=== PATIENT | female | born 1990 | race Caucasian/White ===

== ENCOUNTER 2016-12-15 17:20 | Emergency (ER) | payer OTHER ==
[2016-12-15 17:35] VITALS: BMI 21.8
[2016-12-15 17:37] VITALS: O2SAT 100
[2016-12-15] MEDS ORDERED: Sodium Chloride 0.9% 1,000 ML IV ONE (18:11)
--- NOTE | 2016-12-15 18:41 | C.PDOC ---
History Of Present Illness 26 y/o female, , 10 weeks , presents to ED with complaint of lower pelvic discomfort for 3 days. Patient was evaluated on 11/22/16 in this ER for similar complaints, discharged with diagnosis of UTI, and prescribed Keflex. Patient notes she took Keflex as directed. Denies any prior ultrasound during this . Patient otherwise denies fever, chills, nausea, vomiting, dysuria, vaginal bleeding, or other associated symptoms. Time Seen by Provider: 12/15/16 18:04 Chief Complaint (Nursing): Abdominal Pain History Per: Patient History/Exam Limitations: no limitations Onset/Duration Of Symptoms: Days Current Symptoms Are (Timing): Still Present Location Of Pain/Discomfort: Suprapubic Radiation Of Pain To:: None Quality Of Discomfort: "Pain" Associated Symptoms: denies: Fever, Chills, Nausea, Vomiting, Chest Pain, Urinary Symptoms Recent travel outside of the [place]: No Abnormal Vaginal Bleeding: No : 2 Para: 1 Miscarriage: 0 Past Medical History Reviewed: Historical Data, Nursing Documentation, Vital Signs Vital Signs: Last Vital Signs Temp 98.3 F 12/15/16 20:11 Pulse 78 12/15/16 20:11 Resp 18 12/15/16 20:11 BP 101/60 12/15/16 20:11 Pulse Ox 100 12/15/16 20:11 - Medical History PMH: No Chronic Diseases - [facility] Procedures LOCAL EXCIS BREAST LES (05/14/15) Family History: States: Unknown Family Hx - Social History Hx Tobacco Use: No Hx Alcohol Use: No Hx Substance Use: No - Immunization History Hx Tetanus Toxoid Vaccination: No Hx Influenza Vaccination: No Hx Pneumococcal Vaccination: No Review Of Systems Except As Marked, All Systems Reviewed And Found Negative. Constitutional: Negative for: Fever, Chills Cardiovascular: Negative for: Chest Pain Respiratory: Negative for: Cough Gastrointestinal: Positive for: Abdominal Pain. Negative for: Nausea, Vomiting Genitourinary: Negative for: Dysuria, Frequency, Vaginal Bleeding Skin: Negative for: Rash Physical Exam - Physical Exam Appears: Non-toxic, No Acute Distress Skin: Normal Color, Warm, Dry Head: Atraumatic, Normacephalic Oral Mucosa: Moist Chest: Symmetrical Cardiovascular: Rhythm Regular Respiratory: Normal Breath Sounds, No Rales, No Rhonchi, No Wheezing Gastrointestinal/Abdominal: Normal Exam, Soft, No Tenderness, No Distention, No Guarding, No Rebound Back: Normal Inspection, No CVA Tenderness Extremity: Normal ROM, Capillary Refill (< 2 sec. ) Neurological/Psych: Oriented x3, Normal Speech, Normal Cognition ED Course And Treatment - Laboratory Results Result Diagrams: 12/15/16 18:51 12/15/16 18:51 Lab Interpretation: Normal (quant HCG 97,399, O+) Urine POC: Positive O2 Sat by Pulse Oximetry: 100 (RA) Pulse Ox Interpretation: Normal - CT Scan/US US Other Rad Studies (CT/US): Read By Radiologist, Radiology Report Reviewed CT/US Interpretation: IMPRESSION: Odom viable is present, corresponding to 10 weeks 5 days gestation. Small left. ovarian cyst as described. Progress Note: Treated with Pepcid, Zofran, IVFs. Labs ordered and reviewed. On reassessment, patient is resting comfortably, and is in no acute distress. Patient instructed to follow up with clinic/PMD within 1-2 days. Reevaluation Time: 20:03 Reassessment Condition: Unchanged (remains asymptomatic) Medical Decision Making Medical Decision Making: normal IUP, no UTI Disposition Doctor Will See Patient In The: Office Counseled Patient/Family Regarding: Studies Performed, Diagnosis - Disposition Referrals: Jenny Marrero MD [Staff Provider] - Disposition: HOME/ ROUTINE Disposition Time: 20:03 Condition: GOOD Additional Instructions: Take pepcid 20 mg @ night to lower stomach acid and improve nausea symptoms. Take your vitamin at night as well- causes nausea Zofran ODT 4 mg (for nausea) dissolved on the mouth in Case of nausea/vomiting. Follow-up with your OBGYN as normal - Usually 12 weeks Ultrasound Prescriptions: Ondansetron ODT [Zofran ODT] 4 mg PO Q8H PRN #6 odt PRN Reason: Nausea/Vomiting Instructions: (ED), Hyperemesis Gravidarum (ED) - Clinical Impression Clinical Impression: , Hyperemesis gravidarum - Scribe Statement The provider has reviewed the documentation as recorded by the Pam Gupta Provider Attestation: Provider Scribe Attestation: All medical record entries made by the Scribe were at my direction and personally dictated by me. I have reviewed the chart and agree that the record accurately reflects my personal performance of the history, physical exam, medical decision making, and the department course for this patient. I have also personally directed, reviewed, and agree with the discharge instructions and disposition.
[2016-12-15] MEDS ORDERED: Sodium Chloride 0.9% 1,000 ML ONE (18:44)
[2016-12-15 18:55] LABS: BASO # 0.1 K/uL (0.0-0.2); BASO % 0.7 % (0.0-2.0); EOS # 0.1 K/uL (0.0-0.7); EOS % 1.3 % (0.0-4.0); HEMATOCRIT 34.1 % (34.0-47.0); LYMPH # 2.6 K/uL (1.0-4.3); LYMPH % 24.8 % (20.0-40.0); MEAN CELL VOLUME 91.1 fL (81.0-99.0); MEAN CORPUSCULAR HEMOGLOBIN 30.5 pg (27.0-31.0); MEAN CORPUSCULAR HGB CONC 33.5 g/dL (33.0-37.0); MEAN PLATELET VOLUME 8.7 fL (7.2-11.7); MONO # 0.7 K/uL (0.0-0.8); MONO % 6.6 % (0.0-10.0); RED CELL DISTRIBUTION WIDTH 13.6 % (11.5-14.5); WHITE BLOOD COUNT 10.4 K/uL (4.8-10.8)
[2016-12-15 19:04] LABS: CHLORIDE 98 mmol/L (98-107); POTASSIUM 3.9 mmol/L (3.6-5.2); SODIUM 136 mmol/L (132-148)
[2016-12-15 19:06] LABS: BILIRUBIN,TOTAL 0.5 mg/dL (0.2-1.3); GFR AFRICAN-AMERICAN > 60
[2016-12-15 19:07] LABS: ALB/GLOB RATIO 1.3 (1.0-2.1); ALKALINE PHOSPHATASE 43 U/L (38-126); ALT/SGPT 19 U/L (9-52); AST/SGOT 20 U/L (14-36); BLOOD UREA NITROGEN 10 mg/dL (7-17); CALCIUM 8.4 mg/dl (8.6-10.4); CARBON DIOXIDE 24 mmol/L (22-30); GLUCOSE,RANDOM 78 mg/dL (65-105); TOTAL PROTEIN 6.6 g/dL (6.3-8.3)
[2016-12-15 19:59] LABS: URINE BACTERIA RARE (<OCC); URINE BILIRUBIN NEGATIVE (NEGATIVE); URINE BLOOD NEGATIVE (NEGATIVE); URINE COLOR Yellow (YELLOW); URINE GLUCOSE (UA) NORMAL (Normal); URINE KETONE NEGATIVE (NEGATIVE); URINE LEUKOCYTE ESTERASE NEG Leu/uL (Negative); URINE PROTEIN NEGATIVE (NEGATIVE); URINE UROBILINOGEN NORMAL mg/dL (0.2-1.0)
[2016-12-15 20:12] VITALS: BP 101/60; PULSE 78; RESP 18; TEMP 98.3
--- NOTE | 2016-12-16 08:18 | US ---
Pelvic ultrasound History: . Pain. Comparison: None available. Technique: Real-time sonography was performed through the pelvis utilizing transabdominal technique. Findings: Uterus: 10.7 x 7.9 x 7.6 centimeters. Anteverted. Cervix measures 3.2 centimeters. Intrauterine gestational sac measuring 4.3 centimeters corresponding to a gestational age of 9 weeks and 5 days. Yolk sac measures 3.6 millimeters. [place]-rump length measures 4.7 centimeters corresponding to a gestational age of approximately 11 weeks and 4 days. heart rate of 146 beats per minute. No free fluid in the pelvic cul-de-sac. Right ovary: 2.9 x 1.8 x 2.1 centimeters. Normal flow. Left ovary: 3.9 x 2.2 x 3.5 centimeters. Normal flow. Hypoechoic cyst measuring 2.2 x 1.8 x 1.9 centimeters. Impression: Intrauterine corresponding to a gestational age of between 9 weeks and 5 days by gestational sac size and 11 weeks and 4 days by crown-rump length. heart rate of 146 beats per minute. Left ovarian cyst. Limited 1st trimester ultrasound for viability purposes only. Continued interval followup with serial ultrasound, serial HCG levels, and gynecological consultation would be helpful if clinically indicated. These findings were preliminarily reported at 7:56 p.m. on 12/15/[address] Bryan Harden from [employer].
== END 2016-12-15 20:13 | disposition home or self-care (01) ==
LOC: C.ER 17:20
DX: O21.0 Mild hyperemesis gravidarum (principal); Z3A.10 10 weeks gestation of pregnancy
CPT/HCPCS: 76801; 80053; 81001; 84702; 85025; 86850; 86900; 96361; 96374; 96375; 99285; J2405; J7040

== ENCOUNTER 2017-01-23 17:00 | Emergency (ER) | payer OTHER ==
[2017-01-23 17:42] VITALS: BMI 22.2
[2017-01-23] MEDS ORDERED: Sodium Chloride 0.9% 500 ML IV STA (19:36)
[2017-01-23 19:37] LABS: BASO % 0.4 % (0.0-2.0); EOS # 0.1 K/uL (0.0-0.7); EOS % 1.1 % (0.0-4.0); HEMATOCRIT 34.8 % (34.0-47.0); LYMPH # 2.7 K/uL (1.0-4.3); LYMPH % 23.7 % (20.0-40.0); MEAN CELL VOLUME 90.9 fL (81.0-99.0); MEAN CORPUSCULAR HEMOGLOBIN 29.8 pg (27.0-31.0); MEAN CORPUSCULAR HGB CONC 32.8 g/dL (33.0-37.0); MEAN PLATELET VOLUME 8.6 fL (7.2-11.7); MONO % 8.6 % (0.0-10.0); RED CELL DISTRIBUTION WIDTH 13.6 % (11.5-14.5); WHITE BLOOD COUNT 11.3 K/uL (4.8-10.8)
[2017-01-23 19:41] LABS: CHLORIDE 98 mmol/L (98-107)
[2017-01-23 19:42] LABS: POTASSIUM 3.8 mmol/L (3.6-5.2); SODIUM 131 mmol/L (132-148)
--- NOTE | 2017-01-23 19:42 | C.PDOC ---
History Of Present Illness A 26 year old female who is 16 weeks , presents to the ER vomiting and loose stool since yesterday. 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 Patient denies abdominal pain, fever, chills, cold, cough, vaginal discharge or bleeding, dysuria, hematuria, or any other complaints. Time Seen by Provider: 01/23/17 19:18 Chief Complaint (Nursing): GI Problem History Per: Patient History/Exam Limitations: no limitations Onset/Duration Of Symptoms: Days Current Symptoms Are (Timing): Still Present Severity: Mild Additional History Per: Patient Abnormal Vaginal Bleeding: No Past Medical History Reviewed: Historical Data, Nursing Documentation, Vital Signs Vital Signs: Last Vital Signs Temp 98.0 F 01/23/17 17:42 Pulse 84 01/23/17 17:42 Resp 20 01/23/17 17:42 BP 97/62 L 01/23/17 17:42 Pulse Ox 100 01/23/17 19:44 - Ready To Travel Procedures LOCAL EXCIS BREAST LES (05/14/15) Family History: States: Unknown Family Hx - Social History Hx Tobacco Use: No Hx Alcohol Use: No Hx Substance Use: No - Immunization History Hx Tetanus Toxoid Vaccination: No Hx Influenza Vaccination: No Hx Pneumococcal Vaccination: No Review Of Systems Except As Marked, All Systems Reviewed And Found Negative. Constitutional: Negative for: Fever, Chills Respiratory: Negative for: Cough Gastrointestinal: Positive for: Vomiting, Diarrhea. Negative for: Abdominal Pain Genitourinary: Negative for: Dysuria, Hematuria, Vaginal Discharge, Vaginal Bleeding Physical Exam - Physical Exam Appears: Non-toxic, No Acute Distress Skin: Warm, Dry Head: Atraumatic, Normacephalic Eye(s): bilateral: Normal Inspection, PERRL, EOMI Oral Mucosa: Moist Neck: Normal Cardiovascular: Rhythm Regular, No Murmur Respiratory: Normal Breath Sounds, No Rales, No Rhonchi, No Wheezing Gastrointestinal/Abdominal: Soft, No Tenderness, Other (gravid) Neurological/Psych: Oriented x3, Normal Speech, Normal Cognition ED Course And Treatment - Laboratory Results Result Diagrams: 01/23/17 19:30 01/23/17 19:30 O2 Sat by Pulse Oximetry: 100 (RA) Pulse Ox Interpretation: Normal Progress Note: FHR 174, pt is comfortable , tolerated PO fluids and advised clear fluids diet at home and may progress to BRAT diet if fluids are tolerated. Abdomen is nontender Reevaluation Time: 20:30 Reassessment Condition: Improved Medical Decision Making Medical Decision Making: Plans: -Blood labs -Zofran -IV fluids -UV -Reassess and disposition Patient is resting comfortably, abdomen remains soft, and patient is tolerating PO. ~Patient feels comfortable going home. Patient will be discharged home. Disposition Counseled Patient/Family Regarding: Diagnosis, Need For Followup, Rx Given - Disposition Referrals: Private OB, PMD [Other] Disposition: HOME/ ROUTINE Disposition Time: 20:31 Condition: STABLE Additional Instructions: Liquid diet if tolerated may do a BRAT diet ( bananas, rice, tea, apple, bread ) Follow up with your OB doctor Return to ER if worse Prescriptions: Ondansetron [Zofran Odt] 4 mg PO TID #10 odt - Clinical Impression Clinical Impression: Gastroenteritis, - Scribe Statement The provider has reviewed the documentation as recorded by the Danielibsal torrez All medical record entries made by the Danielibsal were at my direction and personally dictated by me. I have reviewed the chart and agree that the record accurately reflects my personal performance of the history, physical exam, medical decision making, and the department course for this patient. I have also personally directed, reviewed, and agree with the discharge instructions and disposition.
[2017-01-23 19:44] LABS: GFR AFRICAN-AMERICAN > 60
[2017-01-23 19:45] LABS: BLOOD UREA NITROGEN 14 mg/dL (7-17); CALCIUM 8.3 mg/dl (8.6-10.4); CARBON DIOXIDE 25 mmol/L (22-30); GLUCOSE,RANDOM 77 mg/dL (65-105)
[2017-01-23] MEDS ORDERED: Sodium Chloride 0.9% 500 ML IV ONE (19:58)
[2017-01-23 20:06] LABS: RBC URINE < 1 /hpf (0-3); URINE BACTERIA OCC (<OCC); URINE BILIRUBIN NEGATIVE (NEGATIVE); URINE BLOOD NEGATIVE (NEGATIVE); URINE COLOR Yellow (YELLOW); URINE GLUCOSE (UA) NORMAL (Normal); URINE KETONE NEGATIVE (NEGATIVE); URINE LEUKOCYTE ESTERASE TRACE Leu/uL (Negative); URINE PROTEIN NEGATIVE (NEGATIVE); URINE UROBILINOGEN NORMAL mg/dL (0.2-1.0); WBC URINE 3 /hpf (0-5)
[2017-01-23 20:56] VITALS: BP 94/62; PULSE 77; RESP 16; TEMP 98.1
[2017-01-24 03:08] VITALS: O2SAT 100
== END 2017-01-23 20:56 | disposition home or self-care (01) ==
LOC: C.ER 17:00
DX: O26.892 Other specified pregnancy related conditions, second trimester (principal); K52.9 Noninfective gastroenteritis and colitis, unspecified; Z3A.16 16 weeks gestation of pregnancy
CPT/HCPCS: 80048; 81001; 85025; 96361; 96374; 99284; J2405; J7040

== ENCOUNTER 2017-04-07 16:31 | Emergency (ER) | payer OTHER | END 2017-04-07 17:50 | disposition home or self-care (01) | LOC: C.EROB 16:31 | DX: O26.892 Other specified pregnancy related conditions, second trimester (principal); R10.30 Lower abdominal pain, unspecified; Z3A.27 27 weeks gestation of pregnancy ==

== ENCOUNTER 2017-04-24 12:24 | Emergency (ER) | payer OTHER ==
[2017-04-24 17:09] VITALS: BP 110/60; PULSE 77; RESP 18; TEMP 97; O2SAT 100
== END 2017-04-24 13:07 | disposition home or self-care (01) ==
LOC: C.EROB 12:24
DX: O26.893 Other specified pregnancy related conditions, third trimester (principal); R10.9 Unspecified abdominal pain; Z3A.29 29 weeks gestation of pregnancy

== ENCOUNTER 2017-05-14 23:03 | Emergency (ER) | payer OTHER ==
[2017-05-14 23:39] VITALS: BMI 29.0
--- NOTE | 2017-05-14 23:46 | OBHP ---
Datetime: 05/14/2017 23:40 IP Adm Impression: , intrauterine IP Admit Plan: Discharge home Admit Comment, IP Provider: chief complaint-lower abdominal pain HPI 26 y/o at 32 wga with c/o an episode of lower abodminal pain which started at 1pm, comes and goes, initially 6/10 now resolved. Pt denies any urinary frequency, urgency, dysuira. pt reports constipation. pt denies ctx, lof, vb, +MF. pt denies any inomplete emptying, last sexually active 2 m onths ago. pt denies any fevers, chills, nauase, vomiting, Cp, SOB. 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 Social hx denies tobacco,alcohol or illicit drug use Exam see exam section A/P 26 y/o at 32wga with c/o episode of abdominal pain now resolved no evidence of labor -s/p UA -patient discharged home -follow up with dr mcknight this week Discussed with dr mcknight Pelvic Type - PN: Adequate Extremities - PN: Normal Abdomen - PN: Normal Back - PN: Normal Breast - PN: Not Done Lungs - PN: Normal Heart - PN: Normal Thyroid - PN: Not Done Neurologic - PN: Normal HEENT - PN: Normal General - PN: Normal Presentation-Admit: Vertex FHR - Baseline A Provider: 130 Membranes, Provider: Intact Contraction Comments Provider: none Gestation - Est Wks by US: 32.0 EGA AdmitDate IP: 32.0 Vital Signs Provider: Reviewed; Within Normal Limits IP Chief Complaint: Other NICHD Variability Prov Fetus A: Moderate 6-25bpm NICHD Decel Fetus A IP Provider: None Dilatation, Provider: 0 Effacement, Provider: 0 Station, Provider: -3 Genitourinary Exam: Normal DTRs - PN: Normal
[2017-05-14 23:51] LABS: RBC URINE < 1 /hpf (0-3); URINE BACTERIA OCC (<OCC); URINE BILIRUBIN NEGATIVE (NEGATIVE); URINE BLOOD NEGATIVE (NEGATIVE); URINE COLOR Yellow (YELLOW); URINE GLUCOSE (UA) NORMAL (Normal); URINE KETONE NEGATIVE (NEGATIVE); URINE LEUKOCYTE ESTERASE TRACE Leu/uL (Negative); URINE PROTEIN NEGATIVE (NEGATIVE); WBC URINE 6 /hpf (0-5)
--- NOTE | 2017-05-14 23:53 | OBDCSUM ---
Datetime: 05/14/2017 23:50 Discharged to, Provider: Home Follow up at, Provider: Dr Guaman Disch Instr Activity: Normal activity Disch Instr Diet: Regular Discharge Instructions, Provider: Routine instructions given Discharge Time: 05/14/2017 23:50 Follow up in weeks, Provider: Disch Referrals: None Contraception discussed, Prov: No Discharge Comment, Provider: labor precautions given Discharge Diagnosis Prov Other: abdominal pain
[2017-05-15 04:30] VITALS: BP 109/57; PULSE 76; RESP 18
== END 2017-05-14 23:55 | disposition home or self-care (01) ==
LOC: C.EROB 23:03
DX: O26.893 Other specified pregnancy related conditions, third trimester (principal); R10.30 Lower abdominal pain, unspecified; Z3A.32 32 weeks gestation of pregnancy

== ENCOUNTER 2017-05-29 12:29 | Emergency (ER) | payer OTHER ==
[2017-05-29] MEDS ORDERED: Lactated Ringer's 1,000 ML IV SCH (13:30)
[2017-05-29 14:25] LABS: RBC URINE 2 /hpf (0-3); URINE BACTERIA RARE (<OCC); URINE BILIRUBIN NEGATIVE (NEGATIVE); URINE BLOOD NEGATIVE (NEGATIVE); URINE COLOR Yellow (YELLOW); URINE GLUCOSE (UA) NORMAL (Normal); URINE KETONE NEGATIVE (NEGATIVE); URINE LEUKOCYTE ESTERASE TRACE Leu/uL (Negative); URINE PROTEIN NEGATIVE (NEGATIVE); URINE UROBILINOGEN NORMAL mg/dL (0.2-1.0); WBC URINE 5 /hpf (0-5)
--- NOTE | 2017-05-29 16:29 | OBHP ---
Datetime: 05/29/2017 13:45 IP Adm Impression: , intrauterine ; No Active Labor; Intact Membranes IP Admit Plan: Discharge home Admit Comment, IP Provider: 27 y.o. P1001 LMP unsure, CANDACE 07/07/17, EGA 34w 3d, c/o clear fluid per vagina since 0800 hours, "whenever I sat on the toilet". Also, vaginal pressure "I can't breathe" si nce 1800 hours 05/28/17 - feels like cramps. Pain scale 6/10. issues: Dr Guaman. Severe anemia - on IV iron therapy - now 3 times a week @ [facility] [place]. No other issues. 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 Denies STIs or abnormal Pap. PMH: 2009, lyme disease; not on meds x 4 years. Has annual check with multiple providers. PSH: 2016, right breast cystectomy; benign. NKDA Meds: Not taking PNV - tried OTC Gummy MVI Soc Hx: denies tobacco, illicit drug or EtOH use. Lives with her son. Works for [employer]; on mate rnity leave 05/19/17. FOB not involved. Fam Hx: Mother alive 47 y.o. no med issue. Father alive 53 - sleep apnea. GreatGM - colon CA; A_W P.E.: as above. WD, in NAD; mildly anxious, crying. Awake, alert, oriented to time, person , and place. Pleasant and cooperative Assessment: 27 y.o. P1, 34w 3d, no rupture of membranes; presumptive BV. Uterine contracitns; no cervical dilatation. Category 1 tracing. clinically stable. Plan: 1) IVFs 2) U/A 3) Observe Addendum: 1410 hours - cervical exam repeated - no cervical change - U/A: trace leuk esterase; S.G. 1.014 Assessment: No cervical change; early UTI. BV. Category 1 tracing. Clincally stble. Plan: 1) Discharge home 2) Reviewed S/S PTL 3) Rx: MacroBID 100 mg p.o. BID x 7 days 4) Increase p.o. hydration 5) Keep next scheduled appointment - as per, and discussed with, Dr. Argueta Pelvic Type - PN: Adequate Extremities - PN: Normal Abdomen - PN: Normal Back - PN: Normal Breast - PN: Not Done Lungs - PN: Normal Heart - PN: Normal Thyroid - PN: Not Done Neurologic - PN: Normal HEENT - PN: Normal General - PN: Normal Presentation-Admit: Vertex FHR - Baseline A Provider: 140 Contraction Comments Provider: irregular Comments, ACOG Physical Exam: Abdomen: Gravid. Soft. Non tender in all quadrants Speculum: no pooling, nitrazine (-) , Moderate amount of yeloowinsh creamy discharge Bedside sono/BPP: cephalic, right fatemeh-lateral placenta; (+) FM; (+)FBM; (+) Tone; ELIAZAR 11.58cm All other systeme reviewed and are negative Gestation - Est Wks by US: 34w 1d EGA AdmitDate IP: 34.1 IP Chief Complaint: Uterine contractions; Suspected ruptured membranes NICHD Variability Prov Fetus A: Moderate 6-25bpm NICHD Accel Fetus A IP Provider: 15X15 FHR Category Provider Fetus A: Category I NICHD Decel Fetus A IP Provider: None Dilatation, Provider: 0 Effacement, Provider: 30 Station, Provider: -3 Genitourinary Exam: Normal DTRs - PN: Not Done
[2017-05-29 19:17] VITALS: BP 110/58; PULSE 89; RESP 18; TEMP 97.7
== END 2017-05-29 15:05 | disposition home or self-care (01) ==
LOC: C.EROB 12:29
DX: O47.03 False labor before 37 completed weeks of gestation, third trimester (principal); Z3A.34 34 weeks gestation of pregnancy
CPT/HCPCS: 81001; 99283; J7120

== ENCOUNTER 2017-05-31 16:04 | Emergency (ER) | payer OTHER ==
[2017-05-31] MEDS ORDERED: Lactated Ringer's 1,000 ML IV ONE (16:32)
[2017-05-31 17:32] LABS: RBC URINE 2 /hpf (0-3); URINE BILIRUBIN NEGATIVE (NEGATIVE); URINE BLOOD NEGATIVE (NEGATIVE); URINE COLOR Yellow (YELLOW); URINE GLUCOSE (UA) NORMAL (Normal); URINE KETONE NEGATIVE (NEGATIVE); URINE LEUKOCYTE ESTERASE 1+ Leu/uL (Negative); URINE PROTEIN NEGATIVE (NEGATIVE); URINE UROBILINOGEN NORMAL mg/dL (0.2-1.0); WBC URINE 18 /hpf (0-5)
--- NOTE | 2017-05-31 18:28 | OBDCSUM ---
Datetime: 05/29/2017 15:01 Discharge Comment, Provider: cont macrobid ptl givern po hyration f/u dr snow on sep 18 Discharge Diagnosis Prov Other: 34wee ctxs nst
--- NOTE | 2017-05-31 18:29 | OBHP ---
Datetime: 05/31/2017 18:24 Admit Comment, IP Provider: pt was seen at bed side. feels good, no ctxs, vb, lof,+fm s/p ivf and terv ve closed x 2 ua neg plan cont macrobid ptl givern po hyration f/u dr snow on jun 05 FHR - Baseline A Provider: 140 Contraction Comments Provider: none NICHD Variability Prov Fetus A: Moderate 6-25bpm NICHD Accel Fetus A IP Provider: 15X15 FHR Category Provider Fetus A: Category I Datetime: 05/31/2017 16:40 IP Adm Impression: , intrauterine Comments, ACOG Physical Exam: VS: BP 98/55 HR 85 Gen: AAOx3, NAD Abd: soft, gravid, no fundal tenderness Ext: no clubbing, cyanosis, edema SVE: closed EFM: 135, mod variability, accels, no decels TOCO: CTX q4-10min EGA AdmitDate IP: 34.3 IP Chief Complaint: Uterine contractions NICHD Decel Fetus A IP Provider: None
[2017-05-31 23:04] VITALS: BP 110/59; PULSE 102; RESP 20; TEMP 97.5; O2SAT 99
== END 2017-05-31 18:48 | disposition home or self-care (01) ==
LOC: C.EROB 16:04
DX: O26.893 Other specified pregnancy related conditions, third trimester (principal); R10.9 Unspecified abdominal pain; Z3A.34 34 weeks gestation of pregnancy
CPT/HCPCS: 81001; 96372; 99283; J7120

== ENCOUNTER 2017-06-19 22:42 | Emergency (ER) | payer OTHER ==
--- NOTE | 2017-06-19 23:07 | OBHP ---
Datetime: 06/19/2017 22:59 IP Adm Impression: Term, intrauterine IP Admit Plan: Discharge home Admit Comment, IP Provider: chief complaint-lower abdominal pain, cramping HPI 26 y/o at 37.1 wga with c/o an episode of lower abodminal pain and cramping since 5pm th at comes and goes every 30 mintues, 11/25, denies lof, vb, +FM. pt reports she has been having trouble sleepign at night and is ready to have the baby. 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 Social hx denies tobacco,alcohol or illicit drug use Exam see exam section A/P 26 y/o at 37.1 wks GA not in labor -d/c ella e -labor purecaitons -f/u Dr Guaman 06/21/[address] guaman Pelvic Type - PN: Adequate Extremities - PN: Normal Abdomen - PN: Normal Back - PN: Normal Breast - PN: Not Done Lungs - PN: Normal Heart - PN: Normal Thyroid - PN: Not Done Neurologic - PN: Normal HEENT - PN: Normal General - PN: Normal Presentation-Admit: Vertex FHR - Baseline A Provider: 145 Membranes, Provider: Intact Gestation - Est Wks by US: 37.1 EGA AdmitDate IP: 37.1 Vital Signs Provider: Reviewed; Within Normal Limits IP Chief Complaint: Uterine contractions NICHD Variability Prov Fetus A: Moderate 6-25bpm FHR Category Provider Fetus A: Category I Dilatation, Provider: 0 Effacement, Provider: 0 Station, Provider: -3 Genitourinary Exam: Normal DTRs - PN: Normal
[2017-06-20 06:32] VITALS: BP 94/51; PULSE 81
== END 2017-06-19 23:47 | disposition home or self-care (01) ==
LOC: C.EROB 22:42
DX: O26.893 Other specified pregnancy related conditions, third trimester (principal); Z3A.37 37 weeks gestation of pregnancy

== ENCOUNTER 2017-06-26 12:58 | Inpatient (IN) | payer OTHER ==
[2017-06-26 14:00] VITALS: BMI 30.4
[2017-06-26] MEDS ORDERED: Lactated Ringer's 1,000 ML IV SCH ×2 (14:00)
[2017-06-26 14:38] LABS: BASO % 0.4 % (0.0-2.0); EOS # 0.1 K/uL (0.0-0.7); EOS % 0.7 % (0.0-4.0); HEMATOCRIT 34.1 % (34.0-47.0); LYMPH # 1.3 K/uL (1.0-4.3); LYMPH % 17.1 % (20.0-40.0); MEAN CORPUSCULAR HEMOGLOBIN 29.1 pg (27.0-31.0); MEAN CORPUSCULAR HGB CONC 32.7 g/dL (33.0-37.0); MONO # 0.6 K/uL (0.0-0.8); MONO % 7.5 % (0.0-10.0); NRBC % 0.1 % (0.0-2.0); RED CELL DISTRIBUTION WIDTH 26.1 % (11.5-14.5); WHITE BLOOD COUNT 7.7 K/uL (4.8-10.8)
[2017-06-26 14:47] LABS: CHLORIDE 102 mmol/L (98-107); POTASSIUM 3.6 mmol/L (3.6-5.2); SODIUM 130 mmol/L (132-148)
[2017-06-26 14:49] LABS: BILIRUBIN,TOTAL 0.6 mg/dL (0.2-1.3); GFR AFRICAN-AMERICAN > 60
[2017-06-26 14:50] LABS: ALB/GLOB RATIO 1.1 (1.0-2.1); ALKALINE PHOSPHATASE 206 U/L (38-126); ALT/SGPT 29 U/L (9-52); AST/SGOT 20 U/L (14-36); BLOOD UREA NITROGEN 7 mg/dL (7-17); CARBON DIOXIDE 19 mmol/L (22-30); GLUCOSE,RANDOM 69 mg/dL (65-105); TOTAL PROTEIN 6.3 g/dL (6.3-8.3)
[2017-06-26 14:51] LABS: CALCIUM 8.5 mg/dl (8.6-10.4)
--- NOTE | 2017-06-26 14:51 | OBADHP ---
Datetime: 06/26/2017 13:22 Admit Comment, IP Provider: 27 yo , LMP unsure, CANDACE 07/07/17, EGA 38w 1d c/o SROM at 1000 hours , clear. Also c/o Ctx x "months"; slightly stronger after ROM; crampy; pain scale now 4/10. (+) AFM; denies LOF. Not sexuallyactive in (FOB not involved). care: Dr. AGATA White noted for severe anemia. S/P IV iron infusion therapy 3 times/week x 3-4 weeks; last treatment 4 weeks ago. 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 Denies STIs or abnormal Pap. PMH: 2008, lyme disease; not on meds x 4 years. Has annual check with multiple providers. PSH: 2016, right breast cystectomy; benign. NKDA Meds: Not taking PNV - tried OTC Gummy MVI Soc Hx: denies tobacco, illicit drug or EtOH use. Lives with her son. Works for [employer]; on [employer] leave 05/19/17. FOB not involved. Fam Hx: Mother alive 47 y.o. no med issue. Father alive 53 - sleep apnea. Mat GreatGM - colon CA; A_W at age 98 P.E.: as above. WD in NAD. Awake, alert, oriented to time, person and place. Accompanied by older sister Assessment: 27 y.o. P1001, 38w 1d, SROM. GBS (-). Severe anemia - S/P IV iron infusion therapy.Ca tegory 1 tracing. Clinically stable. Plan: 1) Admt 2) NPO 3) Admission labs 4) Continuous EFM 5) Conservative managment 6) Anticipate vaginal delivery Pelvic Type - PN: Adequate Extremities - PN: Normal Abdomen - PN: Normal Back - PN: Normal Breast - PN: Not Done Lungs - PN: Normal Heart - PN: Normal Thyroid - PN: Not Done Neurologic - PN: Normal HEENT - PN: Normal General - PN: Normal Presentation-Admit: Vertex FHR - Baseline A Provider: 140 Membranes, Provider: Ruptured Contraction Comments Provider: irregular Comments, ACOG Physical Exam: Abdomen: Gravid. Soft. non tender in all quadrants. fundal height 38 c m Speculum: (+) pooling; (+) nitrazine All other systems reviewed and are negative Gestation - Est Wks by US: 38w 1d Pool Provider: Positive Nitrazine Provider: Positive IP Hx Assessment: The History has been Reviewed and is Current Vital Signs Provider: Reviewed IP Chief Complaint: Suspected ruptured membranes NICHD Variability Prov Fetus A: Moderate 6-25bpm NICHD Accel Fetus A IP Provider: 15X15 FHR Category Provider Fetus A: Category I NICHD Decel Fetus A IP Provider: None Dilatation, Provider: 4 Effacement, Provider: 40 Station, Provider: -3 Genitourinary Exam: Normal DTRs - PN: Not Done EGA AdmitDate IP: 38.1 IP Adm Impression: Term, intrauterine ; No Active Labor; Ruptured Membranes IP Admit Plan: Admit to unit; Initiate labor protocol Datetime: 04/24/2017 12:55 IP Chief Complaint Other: abdominal pain
[2017-06-26 14:57] LABS: RBC URINE < 1 /hpf (0-3); URINE BILIRUBIN NEGATIVE (NEGATIVE); URINE BLOOD NEGATIVE (NEGATIVE); URINE COLOR Yellow (YELLOW); URINE GLUCOSE (UA) NORMAL (Normal); URINE KETONE NEGATIVE (NEGATIVE); URINE LEUKOCYTE ESTERASE NEG Leu/uL (Negative); URINE PROTEIN NEGATIVE (NEGATIVE); URINE UROBILINOGEN NORMAL mg/dL (0.2-1.0); WBC URINE 1 /hpf (0-5)
[2017-06-26] MEDS ORDERED: Dextrose 5%/Lactated Ringer's 1,000 ML IV SCH ×3 (16:15→17:45)
[2017-06-26] MEDS ORDERED: Bupivacaine 0.125%/FentaNYL 200 ML EPI ONE (16:56)
--- NOTE | 2017-06-26 16:57 | OBPN ---
Datetime: 06/26/2017 16:51 IP Progress Impression: Normal progression of labor IP Procedures: Sterile Vag Exam IP Progress Plan: Continue present management; Anticipate Vaginal Delivery Membranes, Provider: Ruptured Contraction Comments Provider: 2-5 FHR - Baseline A Provider: 150 IP Progress Note Comment: At approximately 1505 hours, notified by R.N. - patient c/o urge to have b owel movement Cervical exam as above - posterior, medium consistency. Assessment: 27 y.o. P1, 38w 2d, PROM, GBS (-), entering active phase of labor. Category 1 tracing . Clinically stable. Plan: 1) Continue present management 2) Epidural, upon request 3) Anticipate vaginal delivery Vital Signs Provider: Reviewed; Within Normal Limits NICHD Accel Fetus A IP Provider: 15X15 FHR Category Provider Fetus A: Category I NICHD Variability Prov Fetus A: Moderate 6-25bpm Dilatation, Provider: 5 Effacement, Provider: 50 Station, Provider: -3 NICHD Decel Fetus A IP Provider: None Datetime: 06/26/2017 13:22 Pool Provider: Positive Nitrazine Provider: Positive Gestation - Est Wks by US: 38w 1d Presentation-Admit: Vertex
[2017-06-26] MEDS ORDERED: Bupivacaine HCl 0.25% PF (10 ml) Inj ONE (16:59)
[2017-06-26] MEDS ORDERED: Oxytocin 30 UNIT 30 UNITS/500 ML BAG IV ONE (20:06)
[2017-06-26] MEDS ORDERED: Oxytocin 30 UNIT 30 UNITS/500 ML BAG IV SCH (20:15)
[2017-06-26] MEDS ORDERED: Lidocaine 2% MPF (5 ml) Inj ONE (21:00)
[2017-06-26] MEDS ORDERED: Bupivacaine HCl 0.5% PF (10 ml) Inj ONE (21:01)
[2017-06-26] MEDS ORDERED: Bupivacaine 0.25% Inj(30mL) ONE (21:03)
[2017-06-26] MEDS ORDERED: Benzocaine/Menthol 20%-0.5% Topical Spray (60 ml) TOP PRN (23:44)
[2017-06-26] MEDS ORDERED: Measles, Mumps, and Rubella 0.5 ML VIAL SC ONE (23:44)
--- NOTE | 2017-06-26 23:53 | OBADHP ---
Datetime: 06/26/2017 16:51 FHR - Baseline A Provider: 150 Membranes, Provider: Ruptured Contraction Comments Provider: 2-5 Vital Signs Provider: Reviewed; Within Normal Limits NICHD Variability Prov Fetus A: Moderate 6-25bpm NICHD Accel Fetus A IP Provider: 15X15 FHR Category Provider Fetus A: Category I NICHD Decel Fetus A IP Provider: None Dilatation, Provider: 5 Effacement, Provider: 50 Station, Provider: -3 Datetime: 06/26/2017 13:22 EGA AdmitDate IP: 38.1
--- NOTE | 2017-06-26 23:55 | OBDS ---
DELIVERY PERSONNEL Delivery Doctor: DR PARMAR Green Pipefitter: Dianne Leigh RN Anesthesiologist: DR PAGE MATERNAL INFORMATION Delivery Anesthesia: Epidural Medications in Delivery: Pitocin Estimated Blood Loss (ml): 300 Placenta Cultured: No Maternal Complications: None Provider Comments: VILMA, right shoulder anterior no dystocia reduced with maternal pushing, intact pe rineum, spontaneous placenta delivery intact LABOR SUMMARY EDC: 07/09/2017 00:00 No. Babies in Womb: 1 Attempted: No Labor Anesthesia: Epidural LABOR INFORMATION Onset of Labor: 06/26/2017 13:00 Complete Dilatation: 06/26/2017 22:13 Oxytocin: Augmentation Group B Beta Strep: Negative Steroids Given: None Reason Steroids Not Administered: Not Applicable MEMBRANES Membranes Rupture Method: Spontaneous Rupture of Membranes: 06/26/2017 10:30 Length of Rupture (hrs): 12.92 Amniotic Fluid Color: Clear Amniotic Fluid Amount: Moderate Amniotic Fluid Odor: Normal STAGES OF LABOR Stage 1 hrs: 9 Stage 1 min: 13 Stage 2 hrs: 1 Stage 2 min: 12 Stage 3 hrs: 0 Stage 3 min: 4 Total Time in Labor hrs: 10 Total Time in Labor min: 29 VAGINAL DELIVERY Episiotomy: None Laceration Extension: N/A Laceration Type: Perineal Other Laceration: Superficial laceration Laceration Repair: Yes Laceration Repair Note: superficial bleeding 1 figure of eight with 2-0 chromic Initial Vag Sponge Count: 10+1 Lap Final Vag Sponge Count: 10+1Lap Initial Vag Sharps Count: 1 Final Vag Sharps Count: 1 Sponge Count Correct: Yes; Vaginal Sweep Performed Sharps Count Correct: Yes BABY A INFORMATION Infant Delivery Date/Time: 06/26/2017 23:25 Method of Delivery: Vaginal Born in Route : No : N/A Forceps: N/A Vacuum Extraction: N/A Shoulder Dystocia : No SHOULDER DYSTOCIA BABY A Infant Delivery Date/Time: 06/26/2017 23:25 PRESENTATION/POSITION BABY A Presentation: Cephalic Cephalic Presentation: Vertex Vertex Position: Left Occipital Anterior Breech Presentation: N/A PLACENTA INFORMATION BABY A Placenta Delivery Time : 06/26/2017 23:29 Placenta Method of Delivery: Spontaneous Placenta Status: Delivered SCORES BABY A Heart Rate 1 min: >100 bpm Resp Effort 1 min: Good Cry Reflex Irritability 1 min: Cough or Sneeze or Pulls Away Muscle Tone 1 min: Active Motion Color 1 min: Body [place], Extremities Blue SCORE 1 MIN: 9 Heart Rate 5 min: >100 bpm Resp Effort 5 min: Good Cry Reflex Irritability 5 min: Cough or Sneeze or Pulls Away Muscle Tone 5 min: Active Motion Color 5 min: Body [place], Extremities Blue SCORE 5 MIN: 9 INFORMATION BABY A Gestational Age at Delivery: 38.1 Gestational Status: Term Outcome : Liveborn Infant Condition : Stable Sex: Male IDENTIFICATION/MEDS BABY A ID Band Number: [id number] Sensor Number: [id number] WEIGHT/LENGTH BABY A Infant Birthweight (gms): 2950 Weight (lb): 6 Infant Weight (oz): 8 Infant Length Inches: 19.00 Length cms: 48.3 CORD INFORMATION BABY A No. Cord Vessels: 3 Nuchal Cord : N/A Cord Blood Taken: Yes Infant Suction: Mouth; Nose ASSESSMENT BABY A Infant Complications: None Physical Findings at Delivery: Within Normal Limits Respirations: Appears Normal Care By: DR MANCERA Transferred To: Remains with Mother
[2017-06-27 07:35] LABS: BASO % 0.1 % (0.0-2.0); EOS % 0.1 % (0.0-4.0); HEMATOCRIT 30.9 % (34.0-47.0); LYMPH # 1.3 K/uL (1.0-4.3); LYMPH % 8.5 % (20.0-40.0); MEAN CELL VOLUME 88.3 fL (81.0-99.0); MEAN CORPUSCULAR HEMOGLOBIN 29.2 pg (27.0-31.0); MEAN CORPUSCULAR HGB CONC 33.1 g/dL (33.0-37.0); MEAN PLATELET VOLUME 8.9 fL (7.2-11.7); MONO # 1.2 K/uL (0.0-0.8); MONO % 7.3 % (0.0-10.0); PLATELET COUNT 171 K/uL (130-400); RED CELL DISTRIBUTION WIDTH 26.3 % (11.5-14.5); WHITE BLOOD COUNT 15.8 K/uL (4.8-10.8)
[2017-06-27 08:49] LABS: EOSINOPHIL 1 % (0-4); NEUTROPHIL 81 % (50-75); TOTAL CELLS COUNTED 100
[2017-06-27] MEDS: Multiple Vitamins Tab PO SCH (09:14)
[2017-06-27] MEDS ORDERED: Influenza Virus Vaccine 45 mcg/0.5 ml Syr (36 months - 7 yrs) IM ONE (10:00)
[2017-06-27] MEDS ORDERED: Measles, Mumps, and Rubella 0.5 ML VIAL SC ONE (11:00)
[2017-06-28 08:29] VITALS: BP 100/69; PULSE 71; RESP 18; TEMP 97.5; O2SAT 100
--- NOTE | 2017-06-28 09:26 | OBPPN ---
Datetime: 06/28/2017 08:27 PP Pain Prov: Within normal limits PP Nausea Prov: Denies PP Flatus Prov: Yes PP BM Prov: Yes PP Breasts Prov: Normal PP Heart Prov: Normal PP Lungs Prov: Normal PP Abdomen/Uterus Prov: Normal PP Lochia Prov: Normal PP Vulva/Perineum Prov: Normal PP CVA Tenderness Prov: Normal PP Extremities Prov: Normal PP C/S Incision Prov: Not Applicable PP Progress Prov: Normal PP Impression Prov: Normal progression PP Plan Prov: Continue present management PP Progress Note Prov: Pt seen and examined at bedside. No acute events overnight. Pt is passing fla tus and has light red vaginal bleeding, denies n/v/f/c. O: Afebrile, BP 100/69 H/H: 10.2/30.9 Awake, Alert, Oriented x3 Abdomen: soft, mildly tender, fundus firm Extriemies: nontender, non swollen 27F s/p , post op day 2 1.) Continue pain management 2.) Continue regular diet 3.) Encourage breast feeding 4.) Encourage ambulation agree withdarrius mcknight md
[2017-06-28] MEDS ORDERED: Influenza Vaccine 60 mcg/0.5 mL SYR (4YR UP) IM ONE (10:00)
[2017-06-28] MEDS: Multiple Vitamins Tab PO SCH (10:32)
== END 2017-06-28 13:50 | disposition home or self-care (01) | DRG 775 ==
LOC: C.EROB 12:58 → C.4D 13:24 → C.4M 06-27 01:30
PROVIDERS: ADMIT Obstetrics & Gynecology; ATTEND Obstetrics & Gynecology
PROC: 10D07Z8 Extraction of Products of Conception, Other, Via Natural or Artificial Opening (ICD-10-PCS; principal; 2017-06-26)
DX: O99.02 Anemia complicating childbirth (principal); Z37.0 Single live birth; Z3A.38 38 weeks gestation of pregnancy

== ENCOUNTER 2017-07-09 14:49 | Emergency (ER) | payer OTHER ==
[2017-07-09 14:49] VITALS: BMI 30.4
[2017-07-09] MEDS ORDERED: Albuterol 0.083% Inhal Sol (2.5 mg/3 mL) UD IH STA (15:12)
[2017-07-09] MEDS ORDERED: Albuterol 0.083% Inhal Sol (2.5 mg/3 mL) UD ONE (15:25)
[2017-07-09 15:48] LABS: BASO # 0.1 K/uL (0.0-0.2); BASO % 0.4 % (0.0-2.0); EOS % 0.2 % (0.0-4.0); HEMATOCRIT 41.9 % (34.0-47.0); LYMPH # 1.4 K/uL (1.0-4.3); LYMPH % 9.9 % (20.0-40.0); MEAN CELL VOLUME 89.1 fL (81.0-99.0); MEAN CORPUSCULAR HEMOGLOBIN 29.1 pg (27.0-31.0); MEAN CORPUSCULAR HGB CONC 32.7 g/dL (33.0-37.0); MEAN PLATELET VOLUME 8.4 fL (7.2-11.7); MONO # 0.4 K/uL (0.0-0.8); PLATELET COUNT 269 K/uL (130-400); RED CELL DISTRIBUTION WIDTH 24.6 % (11.5-14.5); WHITE BLOOD COUNT 14.5 K/uL (4.8-10.8)
[2017-07-09 15:53] LABS: CHLORIDE 100 mmol/L (98-107)
[2017-07-09 15:54] LABS: SODIUM 134 mmol/L (132-148)
[2017-07-09 15:57] LABS: ALB/GLOB RATIO 1.6 (1.0-2.1); ALKALINE PHOSPHATASE 134 U/L (38-126); ALT/SGPT 31 U/L (9-52); AST/SGOT 19 U/L (14-36); BLOOD UREA NITROGEN 12 mg/dL (7-17); CALCIUM 8.6 mg/dl (8.6-10.4); CARBON DIOXIDE 23 mmol/L (22-30); GFR AFRICAN-AMERICAN > 60; GLUCOSE,RANDOM 74 mg/dL (65-105); TOTAL PROTEIN 6.6 g/dL (6.3-8.3)
--- NOTE | 2017-07-09 16:10 | C.PDOC ---
History Of Present Illness 27 yo female c/o chest tightness and sob since yesterday. Worsens with coughing or taking a deep breath in. Pt notes she had a baby two weeks ago. She had some leg swelling b/l prior to delivery, but states the swelling has been improving. Patient denies fever or history of asthma. Time Seen by Provider: 07/09/17 15:03 Chief Complaint (Nursing): Chest Pain History Per: Patient History/Exam Limitations: no limitations Onset/Duration Of Symptoms: Days (yesterday) Current Symptoms Are (Timing): Still Present Quality: Tightness Exacerbating Factors: Deep Breathing, Other (cough) Additional History Per: Patient Past Medical History Reviewed: Historical Data, Nursing Documentation, Vital Signs Vital Signs: Last Vital Signs Temp 98.4 F 07/09/17 17:21 Pulse 69 07/09/17 17:21 Resp 16 07/09/17 17:21 BP 92/56 L 07/09/17 17:21 Pulse Ox 97 07/09/17 18:45 - Medical History PMH: No Chronic Diseases Surgical History: No Surg Hx - [facility] Procedures EXTRACTION OF PRODUCTS OF CONCEPTION, OTHER, VIA OPENING (06/26/17) LOCAL EXCIS BREAST LES (05/14/15) Family History: States: Unknown Family Hx - Social History Hx Tobacco Use: No Hx Alcohol Use: No Hx Substance Use: No - Immunization History Hx Tetanus Toxoid Vaccination: No Hx Influenza Vaccination: No Hx Pneumococcal Vaccination: No Review Of Systems Except As Marked, All Systems Reviewed And Found Negative. Cardiovascular: Positive for: Chest Pain Respiratory: Positive for: Cough, Shortness of Breath Physical Exam - Physical Exam Appears: Well, Non-toxic, No Acute Distress Skin: Normal Color, Warm, Dry Head: Atraumatic, Normacephalic Eye(s): bilateral: Normal Inspection, EOMI Nose: Normal Oral Mucosa: Moist Throat: Normal, No Erythema, No Exudate Neck: Normal, Normal ROM, Supple Chest: Symmetrical, Tenderness ((+) reproducible chest tenderness to anterior chest wall) Cardiovascular: Rhythm Regular Respiratory: Normal Breath Sounds, No Accessory Muscle Use, Other (speaking in full sentences) Gastrointestinal/Abdominal: Normal Exam, Soft, No Tenderness Back: Normal Inspection Extremity: Normal ROM, No Pedal Edema Neurological/Psych: Oriented x3, Normal Speech, Normal Cognition ED Course And Treatment - Laboratory Results Result Diagrams: 07/09/17 15:37 07/09/17 15:37 ECG: Interpreted By Me, Viewed By Me ECG Rhythm: Sinus Rhythm Rate From EC O2 Sat by Pulse Oximetry: 97 (on RA) Pulse Ox Interpretation: Normal - Radiology CXR: Interpreted by Me, Viewed By Me CXR Interpretation: Yes: No Acute Disease Progress Note: Labs, EKG, CXR, Albuterol and Motrin ordered. On re-evaluation, pain improved. No CTA. Pulse ox 98%. No tachycardia. Pt instructed to follow up with PMD in 1-2 days or return to ER if symptoms persist or worsen. Discsused with Dr Pillai, who evaluted labs and CXR and agreed upon plan and treatment. Disposition - Disposition Disposition: HOME/ ROUTINE Disposition Time: 16:09 Condition: STABLE Additional Instructions: Follow up with your primary medical doctor or clinic in 2-5 days for further evaluation. Take medications as prescribed. Return to the emergency department at any time if symptoms persist or worsen. Prescriptions: Albuterol HFA [Ventolin HFA 90 mcg/actuation (8 g)] 2 puff IH [id number] #1 puff Ibuprofen [Motrin] 600 mg PO Q6 PRN #20 tab PRN Reason: Pain, Mild (1-3) Instructions: Upper Respiratory Infection (ED) Forms: [employer] (Kyrgyz) - Clinical Impression Clinical Impression: Chest pain
--- NOTE | 2017-07-09 16:16 | RAD ---
HISTORY: sob COMPARISON: No prior. TECHNIQUE: Chest PA and lateral FINDINGS: LUNGS: Slightly increased/coarsened interstitial markings seen in the mid to lower lung rojo. Rule out reactive/inflammatory airway disease or viral illness. . Additionally, there may be some minimal bibasilar atelectasis. PLEURA: No significant pleural effusion identified. No pneumothorax apparent. CARDIOVASCULAR: Normal. OSSEOUS STRUCTURES: No significant abnormalities. VISUALIZED UPPER ABDOMEN: Normal. OTHER FINDINGS: None. IMPRESSION: Slightly increased/coarsened interstitial markings seen in the mid to lower lung rojo. Rule out reactive/inflammatory airway disease or viral illness. . Additionally, there may be some minimal bibasilar atelectasis.
[2017-07-09 17:04] LABS: NEUTROPHIL 81 % (50-75); REACTIVE LYMPHOCYTES 4 % (0-0); TOTAL CELLS COUNTED 100
[2017-07-09 17:23] VITALS: BP 92/56; PULSE 69; RESP 16; TEMP 98.4
[2017-07-09 18:18] VITALS: O2SAT 97
== END 2017-07-09 17:35 | disposition home or self-care (01) ==
LOC: C.ER 14:49
DX: R07.9 Chest pain, unspecified (principal)

== ENCOUNTER 2017-08-25 19:38 | Emergency (ER) | payer OTHER, MEDICAID ==
[2017-08-25 19:38] VITALS: BMI 30.4
[2017-08-25 19:59] VITALS: BP 96/61; RESP 20; TEMP 98.6
--- NOTE | 2017-08-25 20:46 | C.PDOC ---
History Of Present Illness 27 yr old female presents to the ER with complaints of runny nose and cough for 1 day. Patient is in ER with her son who is also sick similar symptoms. Patient reports sick contact with with similar symptoms. Denies fever, chest pain, SOB, nausea, vomiting, abdominal pain or headache. Time Seen by Provider: 08/25/17 20:02 Chief Complaint (Nursing): Cough, Cold, Congestion History Per: Patient History/Exam Limitations: no limitations Onset/Duration Of Symptoms: Days (1) Past Medical History Reviewed: Historical Data, Nursing Documentation, Vital Signs Vital Signs: Last Vital Signs Temp 98.6 F 08/25/17 21:11 Pulse 72 08/25/17 21:11 Resp 20 08/25/17 21:11 BP 96/61 L 08/25/17 19:54 Pulse Ox 99 08/25/17 21:11 - [employer] Procedures EXTRACTION OF PRODUCTS OF CONCEPTION, OTHER, VIA OPENING (06/26/17) LOCAL EXCIS BREAST LES (05/14/15) Family History: States: No Known Family Hx - Social History Hx Tobacco Use: No Hx Alcohol Use: No Hx Substance Use: No - Immunization History Hx Tetanus Toxoid Vaccination: No Hx Influenza Vaccination: No Hx Pneumococcal Vaccination: No Review Of Systems Except As Marked, All Systems Reviewed And Found Negative. Constitutional: Negative for: Fever ENT: Positive for: Nose Discharge (Runny nose) Cardiovascular: Negative for: Chest Pain Respiratory: Positive for: Cough. Negative for: Shortness of Breath Gastrointestinal: Negative for: Nausea, Vomiting, Abdominal Pain Neurological: Negative for: Headache Physical Exam - Physical Exam Appears: Non-toxic, No Acute Distress Skin: Warm, Dry, No Rash Head: Atraumatic, Normacephalic Eye(s): bilateral: Normal Inspection Ear(s): Bilateral: Normal Oral Mucosa: Moist Throat: Normal, No Erythema, No Exudate, No Drooling Neck: Normal, Normal ROM, Supple Lymphatic: Normal Exam Chest: Symmetrical, No Tenderness Cardiovascular: Rhythm Regular, No Friction Rub, No Murmur Respiratory: Normal Breath Sounds, No Rales, No Rhonchi, No Stridor, No Wheezing Gastrointestinal/Abdominal: Normal Exam, Soft, No Tenderness, No Guarding, No Rebound Back: Normal Inspection, No CVA Tenderness Extremity: Normal ROM, No Swelling Neurological/Psych: Oriented x3, Normal Speech, Normal Motor Gait: Steady ED Course And Treatment O2 Sat by Pulse Oximetry: 98 (RA) Pulse Ox Interpretation: Normal Disposition - Disposition Referrals: [facility] [Outside] Disposition: HOME/ ROUTINE Disposition Time: 20:35 Condition: GOOD Additional Instructions: Follow up with the medical doctor within 1-2 days. Return if worsened Prescriptions: Ibuprofen [Motrin] 600 mg PO TID #21 tab Loratadine [Claritin] 10 mg PO DAILY #10 tab predniSONE [Prednisone] 10 mg PO BID #10 tab Instructions: Upper Respiratory Infection (ED) Forms: [employer] (Greek) - Clinical Impression Clinical Impression: Upper respiratory infection - PA / NIP WRAPPER / Resident Statement MD/DO has reviewed & agrees with the documentation as recorded. - Scribe Statement The provider has reviewed the documentation as recorded by the Scribe Monika Garcia All medical record entries made by the Scribe were at my direction and personally dictated by me. I have reviewed the chart and agree that the record accurately reflects my personal performance of the history, physical exam, medical decision making, and the department course for this patient. I have also personally directed, reviewed, and agree with the discharge instructions and disposition.
[2017-08-25 21:13] VITALS: PULSE 72
[2017-08-25 22:47] VITALS: O2SAT 98
== END 2017-08-25 21:10 | disposition home or self-care (01) ==
LOC: C.ER 19:38
DX: J06.9 Acute upper respiratory infection, unspecified (principal)

== ENCOUNTER 2017-12-24 14:46 | Emergency (ER) | payer BC, MEDICAID, OTHER ==
[2017-12-24 14:46] VITALS: BMI 30.4
[2017-12-24 15:21] VITALS: BP 99/66; PULSE 67; RESP 18; TEMP 98.1; O2SAT 100
--- NOTE | 2017-12-24 16:35 | C.PDOC ---
History Of Present Illness Patient is a 27 y/o female who presents to the ED with child complaining of diffuse myalgias for 2 weeks with recent onset of subjective fever, runny nose, and sore throat for the last 2 days. Patient states she had onset of symptoms before her child, but now both exhibit similar symptoms. Denies any nausea, vomiting, or diarrhea. No other physical complaints at this time. Chief Complaint (Nursing): Flu-like Symptoms History Per: Patient History/Exam Limitations: no limitations Onset/Duration Of Symptoms: Days (2 weeks), Gradual Current Symptoms Are (Timing): Still Present Associated Symptoms: Fever (subjective), Sore Throat, Myalgias. denies: Nausea , Vomiting, Diarrhea Recent travel outside of the [place]: No Past Medical History Reviewed: Historical Data, Nursing Documentation, Vital Signs Vital Signs: Last Vital Signs Temp 98.1 F 12/24/17 15:19 Pulse 67 12/24/17 15:19 Resp 18 12/24/17 15:19 BP 99/66 L 12/24/17 15:19 Pulse Ox 100 12/24/17 18:26 - Medical History PMH: Anemia Denies: Depression, Diabetes, HTN Surgical History: No Surg Hx - [facility] Procedures EXTRACTION OF PRODUCTS OF CONCEPTION, OTHER, VIA OPENING (06/26/17) LOCAL EXCIS BREAST LES (05/14/15) Family History: States: No Known Family Hx - Social History Hx Tobacco Use: No Hx Alcohol Use: No Hx Substance Use: No - Immunization History Hx Tetanus Toxoid Vaccination: No Hx Influenza Vaccination: No Hx Pneumococcal Vaccination: No Review Of Systems Constitutional: Positive for: Fever ENT: Positive for: Nose Discharge, Throat Pain Gastrointestinal: Negative for: Nausea, Vomiting, Diarrhea Physical Exam - Physical Exam Appears: Well, No Acute Distress Skin: Normal Color, Warm, No Rash Head: Atraumatic, Normacephalic Eye(s): bilateral: Normal Inspection Ear(s): Bilateral: Normal Nose: Normal, Other (mild nasal congestion) Oral Mucosa: Moist Throat: Normal, No Erythema, No Exudate Neck: Supple Lymphatic: Normal Exam, No Adenopathy Cardiovascular: Rhythm Regular Respiratory: Normal Breath Sounds, No Rales, No Rhonchi, No Wheezing Gastrointestinal/Abdominal: Soft, No Tenderness Neurological/Psych: Oriented x3, Normal Speech, Normal Cognition ED Course And Treatment O2 Sat by Pulse Oximetry: 100 Progress Note: Patient advised to visit PMD if symptoms worsen. Patient stable for discharge. Disposition - Disposition Disposition: HOME/ ROUTINE Disposition Time: 16:33 Condition: STABLE Additional Instructions: Follow up with your PMD within 1-2 days. Return to ED if feel worse. Prescriptions: Brompheniramine/Pseudoephed/Dm [Bromfed Dm Cough 118 ml] 10 ml PO Q4 #300 ml Fluticasone Nasal [Flonase] 1 spr NS BID #1 spr Ibuprofen [Motrin Tab] 400 mg PO Q8 #30 tab Instructions: Viral Upper Respiratory Infection, Adult (DC) Forms: [employer] (Hebrew) - Clinical Impression Clinical Impression: Upper respiratory infection - Scribe Statement The provider has reviewed the documentation as recorded by the Scribe Martha Camara All medical record entries made by the Scribe were at my direction and personally dictated by me. I have reviewed the chart and agree that the record accurately reflects my personal performance of the history, physical exam, medical decision making, and the department course for this patient. I have also personally directed, reviewed, and agree with the discharge instructions and disposition.
== END 2017-12-24 16:40 | disposition home or self-care (01) ==
LOC: C.ER 14:46
DX: J06.9 Acute upper respiratory infection, unspecified (principal)

== ENCOUNTER 2018-08-18 10:17 | Emergency (ER) | payer MEDICAID, OTHER ==
[2018-08-18 10:25] VITALS: BMI 21.4
[2018-08-18 10:28] VITALS: BP 96/66; PULSE 102; RESP 18; TEMP 98.6; O2SAT 98
--- NOTE | 2018-08-18 11:19 | C.PDOC ---
History Of Present Illness 28 y/o female pt presents to the ER complaining of headache, bodyache, cough, nasal congestion, nausea, vomiting and subjective fever for x3 days. Pt reports her child is sick as well. Pt states she takes tylenol which brought mild relief. Pt denies chills. HPI: Influenza Time Seen by Provider: 08/18/18 10:31 Chief Complaint: Flu-like Symptoms History Per: Patient Exam Limitations: no limitations Onset/Duration Of Symptoms: Days (x3) Symptoms include: fever (subjective), headache, bodyaches, cough, nasal congestion, vomiting, other (nausea) Past Medical History Reviewed: Historical Data, Nursing Documentation, Vital Signs Vital Signs: Last Vital Signs Temp 98.6 F 08/18/18 10:24 Pulse 102 H 08/18/18 10:24 Resp 18 08/18/18 10:24 BP 96/66 L 08/18/18 10:24 Pulse Ox 98 08/18/18 10:24 - Medical History PMH: Anemia - [facility] Procedures EXTRACTION OF PRODUCTS OF CONCEPTION, OTHER, VIA OPENING (06/26/17) LOCAL EXCIS BREAST LES (05/14/15) Family History: States: Unknown Family Hx - Social History Hx Tobacco Use: No Hx Alcohol Use: No Hx Substance Use: No - Immunization History Hx Tetanus Toxoid Vaccination: No Hx Influenza Vaccination: No Hx Pneumococcal Vaccination: No Review Of Systems Constitutional: Positive for: Fever (subjective). Negative for: Chills ENT: Positive for: Nose Congestion Respiratory: Positive for: Cough Gastrointestinal: Positive for: Nausea, Vomiting Musculoskeletal: Positive for: Other (bodyache) Neurological: Positive for: Headache Physical Exam - Physical Exam Appears: Non-toxic, No Acute Distress Skin: No Rash Head: Atraumatic, Normacephalic Ear(s): Bilateral: Normal Nose: Normal, Other (congested,. mild maxillary sinus tenderness) Oral Mucosa: Moist Neck: Normal ROM, Supple, No Other (meningeal signs) Chest: Symmetrical, No Deformity Cardiovascular: Rhythm Regular Gastrointestinal/Abdominal: Bowel Sounds (normal ), Soft, Tenderness (mild epigastric ), No Distention, No Guarding, No Rebound Neurological/Psych: Oriented x3, Normal Speech, Normal Cognition Medical Decision Making Medical Decision Making: Impression: flu sx Plans: -- POC -- flu swab -- zofran -- PO challenge Reassess: Patient is resting comfortably, tolerating PO, and is afebrile at this time. Clinical signs and symptoms are not suggestive of sepsis, meningitis, UTI, pneumonia, intra-abdominal pathology. Patient will be discharged home, and instructed to follow up with his/her physician in 1-2 days without fail. Patient was instructed to return for any worsening symptoms, persistent fever, neck pain, rash, abdominal pain, or vomiting. 1219 pt tolerating po, abdomen is soft, nd, nt on re-exam, d/c with zofran. pepcid and tylenol, f/u pmd - ECG O2 Sat by Pulse Oximetry: 98 Disposition Counseled Patient/Family Regarding: Studies Performed, Diagnosis, Need For Followup, Rx Given - Disposition Referrals: Jacquelyn Gil MD [Staff Provider] - Disposition: HOME/ ROUTINE Disposition Time: 12:21 Condition: IMPROVED Additional Instructions: Drink clear fluids in small amounts at a time; eat bland foods. Take ondansetron before meals to help with nausea and vomiting. Take Tylenol or ibuprofen (can alternate every 3 hours) for headache and body pain. Follow up with Dr De Los Santos in a few days,. return to ER if unable to keep food or fluids down or any other concerns. MEDICATIONS SENT TO [facility]. Prescriptions: Acetaminophen [Tylenol 325mg tab] 650 mg PO Q4 #50 tab Famotidine [Pepcid] 20 mg PO DAILY #14 tab Ondansetron ODT [Zofran ODT] 4 mg PO TID #12 odt Instructions: Viral Syndrome (DC) Forms: [employer] (Tajik), General Discharge Instructions - Clinical Impression Clinical Impression: Viral syndrome - PA / GARBAGE PICK UP WORKER / Resident Statement / has reviewed & agrees with the documentation as recorded. - Scribe Statement The provider has reviewed the documentation as recorded by the Pam Fuentes Do All medical record entries made by the Scribe were at my direction and personally dictated by me. I have reviewed the chart and agree that the record accurately reflects my personal performance of the history, physical exam, medical decision making, and the department course for this patient. I have also personally directed, reviewed, and agree with the discharge instructions and disposition.
== END 2018-08-18 12:36 | disposition home or self-care (01) ==
LOC: C.ER 10:17
DX: B34.9 Viral infection, unspecified (principal)

== ENCOUNTER 2018-10-24 19:25 | Emergency (ER) | payer MEDICAID ==
[2018-10-24 19:25] VITALS: BMI 21.4
[2018-10-24 19:39] VITALS: BP 107/67; PULSE 78; TEMP 97.9; O2SAT 98
--- NOTE | 2018-10-24 20:40 | C.PDOC ---
History Of Present Illness 28 y/o female presents to the ED for evaluation of cough for 1 month. Patient also states when she takes deep breaths, she feels like phlegm is stuck in her throat, causing her to feel somewhat short of breath. On arrival patient is speaking in full sentences. Patient worked a full day today without any issues. Of note, patient did not receive a flu shot this year. + Sick contact in her child, who is sick with similar symptoms. Time Seen by Provider: 10/24/18 19:45 Chief Complaint (Nursing): Cough, Cold, Congestion History Per: Patient History/Exam Limitations: no limitations Onset/Duration Of Symptoms: Days Current Symptoms Are (Timing): Still Present Associated Symptoms: Cough Past Medical History Reviewed: Historical Data, Nursing Documentation, Vital Signs Vital Signs: Last Vital Signs Temp 97.9 F 10/24/18 19:39 Pulse 78 10/24/18 19:39 Resp BP 107/67 10/24/18 19:39 Pulse Ox 98 10/24/18 19:39 - Medical History PMH: Anemia Denies: Depression, Diabetes, HTN - [facility] [facility] Procedures EXTRACTION OF PRODUCTS OF CONCEPTION, OTHER, VIA OPENING (06/26/17) LOCAL EXCIS BREAST LES (05/14/15) Family History: States: Unknown Family Hx - Social History Hx Tobacco Use: No Hx Alcohol Use: No Hx Substance Use: No - Immunization History Hx Tetanus Toxoid Vaccination: No Hx Influenza Vaccination: No Hx Pneumococcal Vaccination: No Review Of Systems Constitutional: Negative for: Fever, Chills, Weakness Eyes: Negative for: Redness, Other (scleral icterus) Cardiovascular: Negative for: Chest Pain Respiratory: Positive for: Cough, Sputum. Negative for: Shortness of Breath, Hemoptysis Gastrointestinal: Negative for: Vomiting, Abdominal Pain, Diarrhea Genitourinary: Negative for: Dysuria, Hematuria Musculoskeletal: Negative for: Back Pain Skin: Negative for: Rash Neurological: Negative for: Weakness, Numbness, Headache, Dizziness Physical Exam - Physical Exam Appears: Well, Non-toxic, No Acute Distress Skin: Normal Color, Warm, No Rash Head: Atraumatic, Normacephalic Eye(s): bilateral: Normal Inspection (no scleral icterus), PERRL, EOMI Nose: Other (enlarged turbinates mildly) Oral Mucosa: Moist Throat: Normal (No swelling or injection), No Erythema, No Exudate Neck: Normal ROM Chest: Symmetrical Cardiovascular: Rhythm Regular, No Murmur Respiratory: No Rales, No Rhonchi, No Wheezing, Other (Lungs clear bilaterally, good air entry) Gastrointestinal/Abdominal: Soft, No Distention Extremity: Bilateral: Atraumatic, Normal ROM Pulses: Left Radial: Normal, Right Radial: Normal Neurological/Psych: Oriented x3, Normal Cranial Nerves Gait: Steady ED Course And Treatment O2 Sat by Pulse Oximetry: 98 (RA) Pulse Ox Interpretation: Normal Medical Decision Making Medical Decision Making: Plan: Flu swab sent. Labs reviewed: Negative flu Counseled patient regarding diagnosis of viral URI. Advised symptomatic treatment and follow up with PMD. Disposition Counseled Patient/Family Regarding: Studies Performed, Diagnosis, Need For Followup - Disposition Disposition: HOME/ ROUTINE Disposition Time: 20:40 Condition: STABLE Instructions: Viral Upper Respiratory Infection, Adult (DC) Forms: General Discharge Instructions, [facility] (Gabonese), Work Excuse - Clinical Impression Clinical Impression: Upper respiratory infection - PA / STAFF MIDWIFE / Resident Statement MD/DO has reviewed & agrees with the documentation as recorded. - Scribe Statement The provider has reviewed the documentation as recorded by the Scribe Helga Durand All medical record entries made by the Scribe were at my direction and personally dictated by me. I have reviewed the chart and agree that the record accurately reflects my personal performance of the history, physical exam, medical decision making, and the department course for this patient. I have also personally directed, reviewed, and agree with the discharge instructions and disposition.
== END 2018-10-24 20:53 | disposition home or self-care (01) ==
LOC: C.ER 19:25
DX: J06.9 Acute upper respiratory infection, unspecified (principal)

== ENCOUNTER 2018-11-13 20:28 | Emergency (ER) | payer MEDICAID ==
[2018-11-13 20:28] VITALS: BMI 21.4
[2018-11-13 20:38] VITALS: PULSE 73
--- NOTE | 2018-11-13 21:20 | C.PDOC ---
History Of Present Illness 28 y/o female with no PMHx, presents to the ED complaining of SOB since yesterday. Reports she also vomited today. Denies any pain. States she just re- started her oral contraceptives. No other complaints. Time Seen by Provider: 11/13/18 20:53 Chief Complaint (Nursing): Shortness Of Breath History Per: Patient History/Exam Limitations: no limitations Onset/Duration Of Symptoms: Days (x 2) Current Symptoms Are (Timing): Still Present Past Medical History Vital Signs: Last Vital Signs Temp 98 F 11/13/18 20:33 Pulse 73 11/13/18 20:33 Resp 20 11/13/18 20:33 BP 98/66 L 11/13/18 20:33 Pulse Ox 98 11/13/18 20:33 - Medical History PMH: Anemia Denies: Depression, Diabetes, HTN - [facility] EXTRACTION OF PRODUCTS OF CONCEPTION, OTHER, VIA OPENING (06/26/17) LOCAL EXCIS BREAST LES (05/14/15) Family History: States: Unknown Family Hx - Social History Hx Tobacco Use: No Hx Alcohol Use: No Hx Substance Use: No - Immunization History Hx Tetanus Toxoid Vaccination: No Hx Influenza Vaccination: No Hx Pneumococcal Vaccination: No Review Of Systems Except As Marked, All Systems Reviewed And Found Negative. Constitutional: Negative for: Fever, Chills Eyes: Negative for: Vision Change Cardiovascular: Negative for: Chest Pain Respiratory: Positive for: Shortness of Breath. Negative for: Cough, Wheezing Gastrointestinal: Positive for: Vomiting. Negative for: Abdominal Pain, Diarrhea Genitourinary: Negative for: Dysuria, Frequency Musculoskeletal: Negative for: Back Pain Neurological: Negative for: Weakness, Numbness, Dizziness Physical Exam - Physical Exam Appears: Well, Non-toxic, No Acute Distress, Other (Speaking in full sentences) Skin: Warm, Dry, No Rash Head: Atraumatic, Normacephalic Eye(s): bilateral: Normal Inspection, PERRL, EOMI Oral Mucosa: Moist Neck: Normal ROM, Supple Chest: Symmetrical Cardiovascular: Rhythm Regular, No Murmur Respiratory: No Rales, No Rhonchi, No Wheezing, Other (Lungs clear bilaterally) Gastrointestinal/Abdominal: Soft, No Tenderness, No Distention Extremity: Bilateral: Atraumatic, Normal Color And Temperature, Normal ROM Neurological/Psych: Oriented x3, Normal Speech Gait: Steady ED Course And Treatment - Laboratory Results Result Diagrams: 11/13/18 21:46 11/13/18 21:46 O2 Sat by Pulse Oximetry: 98 (RA) Pulse Ox Interpretation: Normal Medical Decision Making Medical Decision Making: well appearing in nad, no abd ttp playgin with kids in bed. will get dimer and reassess Initial Plan: - Labs - EKG - Chest x-ray EKG: NSR @ 70 bpm, no ST/T wave changes lasb neg smiling in nad cxr neg as read by me. advise outpt fu. abd soft no ttp. Disposition - Disposition Referrals: [facility] [Outside] [facility] [Outside] Disposition: HOME/ ROUTINE Disposition Time: 21:00 Condition: STABLE Additional Instructions: return to er with worsening. please see your [email or web address] Instructions: Shortness of Breath (Dyspnea) (DC) Forms: [facility] (Monegasque), Work Excuse - Clinical Impression Clinical Impression: SOB (shortness of breath), Vomiting - Scribe Statement The provider has reviewed the documentation as recorded by the Pam Durand Provider Attestation: All medical record entries made by the Danielibe were at my direction and personally dictated by me. I have reviewed the chart and agree that the record accurately reflects my personal performance of the history, physical exam, medical decision making, and the department course for this patient. I have also personally directed, reviewed, and agree with the discharge instructions and disposition.
[2018-11-13 21:51] VITALS: RESP 16
[2018-11-13 21:53] LABS: BASO % 0.4 % (0.0-2.0); EOS # 0.1 K/uL (0.0-0.7); EOS % 0.7 % (0.0-4.0); HEMOGLOBIN 12.9 g/dL (11.0-16.0); LYMPH # 2.2 K/uL (1.0-4.3); LYMPH % 29.8 % (20.0-40.0); MEAN CELL VOLUME 93.5 fL (81.0-99.0); MEAN CORPUSCULAR HEMOGLOBIN 30.4 pg (27.0-31.0); MEAN CORPUSCULAR HGB CONC 32.5 g/dL (33.0-37.0); MEAN PLATELET VOLUME 8.7 fL (7.2-11.7); MONO # 0.5 K/uL (0.0-0.8); MONO % 6.7 % (0.0-10.0); NEUT # 4.7 K/uL (1.8-7.0); NEUT % 62.4 % (50.0-75.0); NRBC % 0.1 % (0.0-2.0); RBC 4.23 Mil/uL (3.80-5.20); WHITE BLOOD COUNT 7.5 K/uL (4.8-10.8)
[2018-11-13 21:58] LABS: INR 1.2; PARTIAL THROMBOPLASTIN TIME 38 SECONDS (21-34); PROTHROMBIN TIME 13.1 SECONDS (9.7-12.2)
[2018-11-13 22:06] LABS: HCG,QUALITATIVE URINE NEGATIVE (NEGATIVE)
[2018-11-13 22:07] LABS: SQUAMOUS EPITHIAL 2 /hpf (0-5); URINE BILIRUBIN NEGATIVE (NEGATIVE); URINE BLOOD NEGATIVE (NEGATIVE); URINE CLARITY Clear (Clear); URINE COLOR Yellow (YELLOW); URINE GLUCOSE (UA) NORMAL (Normal); URINE LEUKOCYTE ESTERASE NEG Leu/uL (Negative); URINE PROTEIN NEGATIVE (NEGATIVE); URINE UROBILINOGEN NORMAL mg/dL (0.2-1.0)
[2018-11-13 22:07] LABS: ALB/GLOB RATIO 1.4 (1.0-2.1)
[2018-11-13 22:10] LABS: ALT/SGPT 14 U/L (9-52); AST/SGOT 21 U/L (14-36); BLOOD UREA NITROGEN 15 mg/dL (7-17); CALCIUM 8.4 mg/dl (8.6-10.4); GFR NON-AFRICAN AMERICAN > 60
[2018-11-13 22:13] LABS: D DIMER < 200 ng/mlDDU (0-243)
[2018-11-13 23:39] VITALS: BP 119/73; TEMP 98.7
[2018-11-14 00:16] VITALS: O2SAT 98
--- NOTE | 2018-11-14 11:26 | RAD ---
Date of service: 11/13/2018 HISTORY: SOB COMPARISON: Comparison chest 07/09/2017 TECHNIQUE: Chest PA and lateral FINDINGS: LUNGS: No active pulmonary disease. PLEURA: No significant pleural effusion identified. No pneumothorax apparent. CARDIOVASCULAR: No aortic atherosclerotic calcification present. Normal cardiac size. No pulmonary vascular congestion. OSSEOUS STRUCTURES: No significant abnormalities. VISUALIZED UPPER ABDOMEN: Normal. OTHER FINDINGS: None. IMPRESSION: No active disease.
--- NOTE | 2018-11-14 12:11 | CARD ---
APPROVED REPORT Date of service: 11/13/2018 EKG Measurement Heart [id number] <Conclusion> Normal sinus rhythm Normal ECG
== END 2018-11-13 23:39 | disposition home or self-care (01) ==
LOC: C.ER 20:28
DX: R06.02 Shortness of breath (principal); R11.10 Vomiting, unspecified; D64.9 Anemia, unspecified